=== PATIENT | male | born 1995 | race Caucasian/White ===

== ENCOUNTER 2016-12-11 14:55 | Emergency (ER) | payer OTHER ==
--- NOTE | 2016-12-11 16:30 | DIAGNOSTIC IMAGING REPORT ---
PROCEDURE: XR FINGER - LEFT INDICATION: TRAUMA/INJURY TECHNIQUE: Four views. COMPARISON: None. FINDINGS: Osseous structures and joint spaces are normal. IMPRESSION: 1. Normal left hand.
--- NOTE | 2016-12-11 16:30 | ED NURSING NOTES ---
Clinical Report - Nurses [place] [address] [place] [address] 12/11/2016 14:59 Patient: GENO KINGSLEY TRIAGE Acuity: LEVEL 3. Chief Complaint: INJURY TO LEFT HAND. Alert. No acute distress. SEPSIS SCREEN: Sepsis Screen. Negative (no infection suspected/documented). NEHAL COMA SCORE: Nehal Coma Scale: 15- eyes open spontaneously (4); best verbal response- oriented x 4 (5); best motor response- obeys commands (6). --15:14 Viry Joya R.N. 15:08 12/11/16. BP: 112/94. HR: 66. RR: 12. O2 saturation: 99%. Temp: 98.4 F (oral). Pain level now: 08/18. --15:14 Viry Joya R.N. Weight: 81.6 kg stated. Height/Length: 70 inches Per Patient. BMI: 25.8. --15: Viry Joya R.N. Medications None. --15: Viry Joya R.N. Allergies No Known Drug Allergy. --15: Viry Joya R.N. History Arrived by private vehicle. Historian: patient. Unaccompanied. Primary physician (unknown). This occurred today. Occurred at work. ( Pt reports getting his finger smashed between a wrench and metal.). PAST MEDICAL HX: Tetanus status: up-to-date. Immunizations: status is unknown. SOCIAL HX: Never smoker. Occasional alcohol use. No drug use. FALL RISK ASSESSMENT: Fall risk assessment completed. No fall risk identified. NUTRITIONAL RISK ASSESSMENT: The nutritional risk assessment revealed no deficiencies. FUNCTIONAL ASSESSMENT: Functional assessment: no impairments noted. LEARNING NEEDS ASSESSMENT: The learning needs assessment revealed no barriers. SKIN INTEGRITY ASSESSMENT: Skin integrity risk assessment completed. No skin integrity risk identified. --15:14 Viry Joya R.N. ADDITIONAL SURGERIES: Tonsillectomy. --15:09 Viry Joya R.N. Interventions ID band on patient. To treatment room. --15:14 Viry Joya R.N. NURSING PROGRESS NOTES Wound cleansed with water. ( ointment applied to wound and band aid applied.). --15:56 Heaven Jones, BRENDA Tech1. DISPOSITION / DISCHARGE Departure time: 16:35 Ajit 2016. Condition at departure: improved and stable. No learning barriers present. Discharge instructions provided and reviewed with the patient. Patient verbalized understanding. Written instructions provided in [place]ian. The patient was discharged by the nurse practitioner. He was discharged home. He left the Emergency Department ambulatory and via private vehicle. Patient driving. --16:52 Viry Joya R.N. Locked/Released at 12/11/2016 16:52 by Viry Joya R.N.
--- NOTE | 2016-12-11 16:30 | DIAGNOSTIC IMAGING REPORT ---
PROCEDURE: XR FINGER - LEFT INDICATION: TRAUMA/INJURY TECHNIQUE: Four views. COMPARISON: None. FINDINGS: Osseous structures and joint spaces are normal. IMPRESSION: 1. Normal left hand.
--- NOTE | 2016-12-11 16:30 | ED ORDER SUMMARY ---
..... Patient: GENO KINGSLEY OrderSheet [facility] VisitID: [id number] [place] [address] 21y, M Registration Date/Time: 12/11/2016 ORDER SHEET Weight: 81.6 kg (stated) Allergies: No Known Drug Allergy GENERAL ORDERS: Finger Left (3) Urgent (15:23 12/11/2016 Vannessa A.R.N.P.) (Ack 15:35 [facility] (16:10 AGUSTINinterkong R.N.) MEDICATION ORDERS: IV FLUIDS: ORDER SHEET NOTES: [Electronically signed by Viry Joya R.N. (16:52 12/11/2016)] [Electronically signed by Nevaeh JasonR.N.PMeera (17:34 12/11/2016)] [Electronically locked/signed by Viry Joya R.N. (16:52 12/11/2016)]
--- NOTE | 2016-12-11 16:30 | ED CLINICAL REPORT ---
Clinical Report - Physicians/Mid Levels [facility] [address] [place] [address] 12/11/2016 14:59 Patient: GENO KINGSLEY Time Seen: 15:14; initial patient contact, initial documentation, patient care assumed. Arrived- By private vehicle. Historian- patient. HISTORY OF PRESENT ILLNESS Chief Complaint: Injury to the left middle finger. The injury happened today. Occurred at work. The patient sustained a crush injury (got caught between metal and wrench). Patient is experiencing mild pain. Patient denies injury to the head or neck. No other injury. REVIEW OF SYSTEMS No swelling, tingling, numbness, weakness or skin laceration. All systems otherwise negative, except as recorded above. PAST HISTORY See nurses notes. ADDITIONAL SURGERIES: Tonsillectomy. --15:09 Viry Joya R.N. The patient's dominant hand is the right. SOCIAL HISTORY Never smoker. Occasional alcohol use. No drug use. No recent travel. Is a local resident. FAMILY HISTORY No significant family medical history. ADDITIONAL NOTES The nursing notes have been reviewed with agreement regarding the chief complaint, HPI, ROS, PMH and patient medications and allergies. PHYSICAL EXAM Vital Signs: 12/11/2016 15:08 BP: 112/94. HR: 66. RR: 12. O2 saturation: 99%. Temp: 98.4 F. Pain level now: 2/10. Have been reviewed as normal and appear to be correct. Appearance: Alert. Oriented X3. No acute distress. Head: Head atraumatic. Eyes: Pupils equal, round and reactive to light. Eyes normal inspection. Respiratory: No respiratory distress. Skin: Skin warm and dry. Skin intact. Extremities: Hand injury present. Left middle finger: mild tenderness of the fingertip; medium sized subungual hematoma present. Neurovascular intact distally. No erythema, swelling, laceration, abrasion or ecchymosis. No puncture wound, foreign body or deformity. No limitation in movement. No amputation present. No wrist injury. Hand and wrist exam otherwise negative. Extremities otherwise negative. Neuro, Vascular and Tendons: Vascular status intact. Sensation intact. Motor intact. Tendon function intact. Neuro: Oriented X 3. No motor deficit. No sensory deficit. Note: isolated injury to finger. LABS, X-RAYS, AND EKG X-Rays: Left hand negative. Lt Hand X-ray: (IMPRESSION: 1. Normal left hand. Electronically Final signed by:Fareed Ochoa MD 12/11/2016 4:30:55 PM). The X-rays were interpreted by the radiologist and contemporaneously by me and discussed with the radiologist. Interpretation time: 16:30. PROGRESS AND PROCEDURES PROCEDURES (used cautery on L 3rd digit nail, blood excised, pt had instant relief). Course of Care: 15:54 12/11/16. L&I paperwork completed. Patient counseled in person regarding the patient's stable condition, test results and diagnosis. Differential Diagnosis: Other possible considerations: nail fx - distal tuft, crush injury, subunqual hematoma/hemorrhage. Above considerations are based on history, physical exam, reassessment and X-Ray data. Differential diagnosis was discussed with patient. Disposition: Discharged home in good and improved condition (16:30). Condition: good and stable. CLINICAL IMPRESSION Crush injury to the left middle finger. Subungual hematoma of the left middle finger. No damage to the nail, foreign body present or laceration present. INSTRUCTIONS Protect wound and keep wound area clean. Soak in warm soapy water twice daily. Warnings: GENERAL WARNINGS: Return or contact your physician immediately if your condition worsens or changes unexpectedly, if not improving as expected, or if other problems arise. Specifically return if problem worsens. Follow-up: Follow up with your doctor in about three days as needed. Call for an appointment. Summary of care provided to patient. Understanding of the discharge instructions verbalized by patient. (Electronically signed by Nevaeh Jason A.R.N.P. 12/11/2016 17:34)
--- NOTE | 2016-12-11 16:30 | ED NURSING NOTES ---
Clinical Report - Nurses [place] [address] [place] [address] 12/11/2016 14:59 Patient: GENO KINGSLEY TRIAGE Acuity: LEVEL 3. Chief Complaint: INJURY TO LEFT HAND. Alert. No acute distress. SEPSIS SCREEN: Sepsis Screen. Negative (no infection suspected/documented). NEHAL COMA SCORE: Nehal Coma Scale: 15- eyes open spontaneously (4); best verbal response- oriented x 4 (5); best motor response- obeys commands (6). --15:14 Viry Joya R.N. 15:08 12/11/16. BP: 112/94. HR: 66. RR: 12. O2 saturation: 99%. Temp: 98.4 F (oral). Pain level now: 08/18. --15:14 Viry Joya R.N. Weight: 81.6 kg stated. Height/Length: 70 inches Per Patient. BMI: 25.8. --15: Viry Joya R.N. Medications None. --15: Viry Joya R.N. Allergies No Known Drug Allergy. --15: Viry Joya R.N. History Arrived by private vehicle. Historian: patient. Unaccompanied. Primary physician (unknown). This occurred today. Occurred at work. ( Pt reports getting his finger smashed between a wrench and metal.). PAST MEDICAL HX: Tetanus status: up-to-date. Immunizations: status is unknown. SOCIAL HX: Never smoker. Occasional alcohol use. No drug use. FALL RISK ASSESSMENT: Fall risk assessment completed. No fall risk identified. NUTRITIONAL RISK ASSESSMENT: The nutritional risk assessment revealed no deficiencies. FUNCTIONAL ASSESSMENT: Functional assessment: no impairments noted. LEARNING NEEDS ASSESSMENT: The learning needs assessment revealed no barriers. SKIN INTEGRITY ASSESSMENT: Skin integrity risk assessment completed. No skin integrity risk identified. --15:14 Viry Joya R.N. ADDITIONAL SURGERIES: Tonsillectomy. --15:09 Viry Joya R.N. Interventions ID band on patient. To treatment room. --15:14 Viry Joya R.N. NURSING PROGRESS NOTES Wound cleansed with water. ( ointment applied to wound and band aid applied.). --15:56 Heaven Jones, BRENDA Tech1. DISPOSITION / DISCHARGE Departure time: 16:35 Ajit 2016. Condition at departure: improved and stable. No learning barriers present. Discharge instructions provided and reviewed with the patient. Patient verbalized understanding. Written instructions provided in [place]. The patient was discharged by the nurse practitioner. He was discharged home. He left the Emergency Department ambulatory and via private vehicle. Patient driving. --16:52 Viry Joya R.N. Locked/Released at 12/11/2016 16:52 by Viry Joya R.N.
--- NOTE | 2016-12-11 16:30 | ED ORDER SUMMARY ---
..... Patient: GENO KINGSLEY OrderSheet [facility] VisitID: [id number] [place] [address] 21y, M Registration Date/Time: 12/11/2016 ORDER SHEET Weight: 81.6 kg (stated) Allergies: No Known Drug Allergy GENERAL ORDERS: Finger Left (3) Urgent (15:23 12/11/2016 Vannessa A.R.N.P.) (Ack 15:[address] [facility] (16:10 AGUSTINinterkong R.N.) MEDICATION ORDERS: IV FLUIDS: ORDER SHEET NOTES: [Electronically signed by Viry Joya R.N. (16:52 12/11/2016)] [Electronically signed by Nevaeh JasonR.N.PMeera (17:34 12/11/2016)] [Electronically locked/signed by Viry Joya R.N. (16:52 12/11/2016)]
--- NOTE | 2016-12-11 17:35 | ED DISCHARGE INSTRUCTIONS ---
Patient: GENO KINGSLEY General Instructions [facility] VisitID: [id number] [place] [address] 21y, M Registration Date/Time: 12/11/2016 Crush injury to the left middle finger. Subungual hematoma of the left middle finger. No damage to the nail, foreign body present or laceration present. INSTRUCTIONS Protect wound and keep wound area clean. Soak in warm soapy water twice daily. Warnings: GENERAL WARNINGS: Return or contact your physician immediately if your condition worsens or changes unexpectedly, if not improving as expected, or if other problems arise. Specifically return if problem worsens. Follow-up: Follow up with your doctor in about three days as needed. Call for an appointment. Summary of care provided to patient. Understanding of the discharge instructions verbalized by patient. ADDITIONAL INFORMATION Crush Injury: Hand [No Fx] You have a CRUSH INJURY of your HAND. This causes local pain, swelling and sometimes bruising. There are no broken bones. This injury may take from a few days to a few weeks to heal. If the FINGERNAIL has been severely injured, it may fall off in 1-2 weeks. A new one will usually start to grow back within a month. Home Care: Keep your hand elevated to reduce pain and swelling. When sitting or lying down elevate your arm above the level of your heart. You can do this by placing your arm on a pillow that rests on your chest or on a pillow at your side. This is most important during the first 48 hours after injury. Apply an ice pack (ice cubes in a plastic bag, wrapped in a towel) over the injured area for 20 minutes every 1-2 hours the first day for pain relief. Continue this 3-4 times a day until the pain and swelling goes away. You may use acetaminophen (Tylenol) or ibuprofen (Motrin, Advil) to control pain, unless another pain medicine was prescribed. [ NOTE : If you have chronic liver or kidney disease or ever had a stomach ulcer or GI bleeding, talk with your doctor before using these medicines.] Keep the splint/cast dry at all times. Bathe with your splint/cast well out of the water, protected with a large plastic bag, rubber-banded at the top end. If a fiberglass cast or splint gets wet, you can dry it with a hair-dryer. Follow Up with your doctor as advised if you are not starting to improve within the next THREE days. [NOTE: If X-rays were taken, they will be reviewed by a radiologist. You will be notified of any new findings that may affect your care.] Get Prompt Medical Attention if any of the following occur: The plaster cast or splint becomes wet or soft The fiberglass cast or splint remains wet for more than 24 hours Increased tightness or pain under the cast or splint Fingers become swollen, cold, blue, numb or tingly Redness, warmth, swelling, drainage from the wound, or foul odor from a cast or splint Fever of 100.4F(38C) or higher, or as directed by your healthcare provider Subungual Hematoma A subungual hematoma is blood under the nail. It occurs when the finger or toe has been hit or crushed. It causes the nail to look blue. Sometimes, the bone under the nail is also fractured and this will take longer to heal. If the bruise is small and not too painful, it will heal without treatment. If the bruise is large and painful, the blood may need to be drained. If a large area of the nail is damaged, it may be removed by your doctor. If the nail was not removed, it may separate and fall off in the next two weeks. In almost all cases, the nail will grow back from under the cuticle. This takes a few weeks to start and is complete in about 4-6 months for a fingernail and 12 months for a toenail. If the nail bed was damaged, the nail may grow back with a rough or irregular shape. Sometimes the nail may not regrow at all. Home Care: Apply an ice pack (ice cubes in a plastic bag, wrapped in a thin towel) and apply for 20 minutes every 1-2 hours the first day. Continue this 3-4 times a day until the pain and swelling goes away. If the nail was drained: Keep the nail covered with a clean Band-Aid for the next two days. There may be some oozing of blood during that time, so change the Band-Aid as needed. Soak the finger or toe once a day under warm running water. Clean any crust away with a cotton tipped applicator (Q-tip) soaked in soapy water. If the nail was removed: The nail bed (tissue under the nail) is moist, soft and sensitive. This needs to be protected from injury for the first 7-10 days until it dries out and becomes hard. Keep it covered with a dressing or Band-Aid until that time. Bandages tend to stick to a newly exposed nail bed and be hard to remove if left in place more than 24 hours. Therefore, unless you were told otherwise, change dressings every 24 hours. If necessary, soak the dressing off while holding your finger or toe under warm running water. If an x-ray showed a fracture, you should protect the finger or toe for 3-4 weeks while it is healing. If you were prescribed antibiotics to prevent infection, take them as directed until they are all gone. You may use acetaminophen (Tylenol) or ibuprofen (Motrin, Advil) to control pain, unless another medicine was prescribed. [NOTE: If you have chronic liver or kidney disease or ever had a stomach ulcer or GI bleeding, talk with your doctor before using these medicines.] Do not use ibuprofen in children under six months of age. Follow Up With Your Doctor Or This Facility As Advised. If The Nail Was Drained, There Is A Small Risk Of Infection. Watch Carefully For The Signs Listed Below. Get Prompt Medical Attention If Any Of The Following Occur: Increasing redness around the nail Increasing local pain or swelling Pus draining from the nail Fever of 100.4F (38C) or higher, or as directed by your healthcare provider You have been given the following additional information: Crush Injury, Hand/Finger Subungual Hematoma (Electronically signed by Nevaeh Jason A.R.N.P. 12/11/2016 17:34)
--- NOTE | 2016-12-11 17:35 | ED MED RECONCILIATION SUMMARY ---
Patient: GENO KINGSLEY Medication Reconciliation Report [facility] VisitID: [id number] [address] [address] 21y, M Registration Date/Time: 12/11/2016 Weight: 81.6 kg Height/Length: 70 in. BMI: 25.8 ALLERGIES: No Known Drug Allergy The patient's Home Medications are listed below: NONE. The source(s) of the original Home Medication information: Not obtained. The following Medications were given to the patient in the Emergency Department: None. The following Medications were prescribed to the patient: None.
--- NOTE | 2016-12-11 17:35 | ED MAR SUMMARY ---
..... Medication Administration Record [facility] [address] [place], [place] [id number] Patient: GENO KINGSLEY Visit ID: [id number] 21y, M Weight: 81.6 kg Height/Length: 70 in BMI: 25.8 ALLERGIES: No Known Drug Allergy
--- NOTE | 2016-12-11 17:35 | ED MAR SUMMARY ---
..... Medication Administration Record [facility] [address] [place], [place] [id number] Patient: GENO KINGSLEY Visit ID: [id number] 21y, M Weight: 81.6 kg Height/Length: 70 in BMI: 25.8 ALLERGIES: No Known Drug Allergy
--- NOTE | 2016-12-11 17:35 | ED MED RECONCILIATION SUMMARY ---
Patient: GENO KINGSLEY Medication Reconciliation Report [facility] VisitID: [id number] [address] [address] 21y, M Registration Date/Time: 12/11/2016 Weight: 81.6 kg Height/Length: 70 in. BMI: 25.8 ALLERGIES: No Known Drug Allergy The patient's Home Medications are listed below: NONE. The source(s) of the original Home Medication information: Not obtained. The following Medications were given to the patient in the Emergency Department: None. The following Medications were prescribed to the patient: None.
== END 2016-12-11 16:35 | disposition home or self-care (01) ==
LOC: ED SRH 14:55
DX: S60.132A Contusion of left middle finger with damage to nail, initial encounter (principal); W23.1XXA Caught, crushed, jammed, or pinched between stationary objects, initial encounter; Y99.0 Civilian activity done for income or pay